=== PATIENT | male | born 1930 | race Caucasian/White ===

== ENCOUNTER → 2017-03-22 | Outpatient (CLI) | payer BC ==
[~2017-03-22] MED LIST: AMLO5TAB2 PO; ASPI325T45 PO; ENAL20TA PO; EZET10TA47 PO; HYDR200T5 PO; ISOS30TA3 PO; LPT/40 PO; METF500T PO; MULTTAB58 PO; NITRSPR6 SL; TOPI25TA55 PO; VITA1TAB4 PO; VITACAP26 PO
[2017-03-22 10:19] LABS: BASO % 0.2 %; BASO ABS # 0.01 K/uL (0-0.2); COMPLETE YES; EOS % 5.3 %; HEMATOCRIT 38.2 % (42-52); IG% 0.2 %; LYMPH % 37.2 %; LYMPH ABS # 1.96 K/uL (1.2-3.4); MEAN CELL VOLUME 84.5 fL (80-100); MEAN CORPUSCULAR HGB CONC 31.9 g/dl (32-36); MEAN PLATELET VOLUME 10.8 fL (7.4-10.4); MONO % 11.6 %; NEUT % 45.5 %; PLATELET COUNT 200 K/uL (130-400); RED BLOOD COUNT 4.52 M/uL (4.7-6.1); WHITE BLOOD COUNT 5.27 K/uL (4.8-10.8)
[2017-03-22 10:23] LABS: ESTIMATED AVERAGE GLUCOSE 151 mg/dl; HA1C FLAG Normal (Normal)
[2017-03-22 10:27] LABS: ALT/SGPT 24 U/L (12-78); BLOOD UREA NITROGEN 28 mg/dl (7-18); BUN/CREATININE RATIO 22.9 (10-20); CARBON DIOXIDE 23 mmol/L (21-32); CHLORIDE 113 mmol/L (98-107); CHOLESTEROL 132 mg/dl (0-200); GLUCOSE 111 mg/dl (70-99); POTASSIUM 4.2 mmol/L (3.5-5.1); SODIUM 144 mmol/L (136-145)
[2017-03-22 10:31] LABS: CALCIUM 9.1 mg/dl (8.5-10.1)
[2017-03-22 10:38] LABS: ALKALINE PHOSPHATASE 77 U/L (45-117); AST/SGOT 20 U/L (15-37); CHOLESTEROL/HDL RATIO 2.7; HDL CHOLESTEROL 49 mg/dl; LDL CHOLESTEROL CALCULATED 56 mg/dl; TRIGLYCERIDES 133 mg/dl (0-150); VERY LOW DENSITY LIPOPROT CALC 27 mg/dl
== END | disposition home or self-care (01) ==
LOC: C.LAB1850 09:05
PROVIDERS: ATTEND Nurse Practitioner Family
DX: E78.5 Hyperlipidemia, unspecified (principal); E11.49 Type 2 diabetes mellitus with other diabetic neurological complication; E03.9 Hypothyroidism, unspecified

== ENCOUNTER 2017-08-29 02:34 | Emergency (ER) | payer BC ==
[~2017-08-29] VITALS: Ht 165.1 cm; Wt 77.8 kg
[2017-08-29 02:37] VITALS: TEMP 36.5; Ht 165.1 cm; Wt 77.8 kg
--- NOTE | 2017-08-29 03:57 | EMERGENCY ROOM VISIT NOTE ---
ED Visit Note First contact with patient: 02:41 I saw this patient in conjunction with Ashley Wilkinson PA-C. I agree with her decision making and treatment plan.
--- NOTE | 2017-08-29 04:01 | EMERGENCY ROOM VISIT NOTE ---
History First contact with patient: 02:41 Chief Complaint: LACERATION/CUT (NON-SUTURE) Stated Complaint: FALL, LEFT ARM SKIN TEAR Nursing Triage Summary: pt was dreaming and fell out of bed, skin tears on bilat elbows History of Present Illness The patient is a 87 year old male who presents to the Emergency Room with complaints of falling out of bed from a nightmare. Patient states he landed on his elbows. He did not hit his head. He takes a baby aspirin. No other blood thinners. Patient complains of skin tears to bilateral elbows and some minimal left elbow pain. No prior fractures. Patient denies head injury, chest pain, dyspnea, back pain, neck pain, facial pain, dominant pain or any other medical complaints. Tetanus is current. Review of Systems See HPI for pertinent positives & negatives. A total of 10 systems reviewed and were otherwise negative. Past Medical/Surgical History Medical Problems: (1) Coronary artery bypass grafts x 4 Social History Smoking Status: Never Smoker Marital Status: Occupation Status: retired Current/Historical Medications Scheduled Amlodipine Besylate (Norvasc), 5 MG PO DAILY Aspirin (Aspirin), 325 MG PO DAILY Atorvastatin (Lipitor), 40 MG PO DAILY Enalapril Maleate (Enalapril Maleate), 20 MG PO DAILY Ezetimibe (Zetia), 10 MG PO DAILY Hydroxychloroquine Sulfate (Plaquenil), 200 MG PO DAILY Isosorbide Mononitrate Ext Rel (Imdur Ext Rel), 30 MG PO DAILY Metformin Hcl (Glucophage), 500 MG PO BID Multiple Vitamin (Multivitamin), 1 TAB PO DAILY Topiramate (Topamax), 25 MG PO DAILY Vitamin E (Vitamin E), 1 TAB PO DAILY Vitamins C & E (Vitamin C), 1 CAP PO DAILY Scheduled PRN Nitroglycerin (Nitrolingual 60 [place]), 1 SPRAY SL Physical Exam Vital Signs Date Time Temp Pulse Resp B/P (MAP) Pulse Ox O2 Delivery O2 Flow Rate FiO2 08/29/17 02:37 36.5 74 18 132/74 96 Room Air Physical Exam VITALS: Vitals are noted on the nurse's note and reviewed by myself. Vital signs stable. GENERAL: Pleasant male, in no acute distress, nondiaphoretic, well-developed well-nourished. SKIN: Skin tears to bilateral elbows with multiple healing bruises to upper lower extremities The rest of the skin was without rashes, erythema, edema, or bruising. There is no tenting of the skin. Capillary reflex less than 2 seconds. HEAD: Normocephalic atraumatic. EARS: External auditory canals clear, tympanic membranes pearly lugo without erythema or effusion bilaterally. EYES: Pupils equal round and reactive to light and accommodation. Conjunctivae without injection, sclerae without icterus. Extraocular movements intact. NOSE: Patent, turbinates without inflammation or discharge. MOUTH: Mucous membranes moist. Pharynx without erythema or exudate. Uvula midline. Airway patent. Tongue does not deviate. NECK: Supple without nuchal rigidity. No lymphadenopathy. No thyromegaly. Cervical spine is nontender. No JVD. HEART: Regular rate and rhythm LUNGS: Clear to auscultation bilaterally without wheezes, rales or rhonchi. No dullness to percussion. No retractions or accessory muscle use. ABDOMEN: Positive bowel sounds x 4. Normal tympanic percussion. Soft, nontender, without masses or organomegaly. Núñez sign negative. No guarding or rebound tenderness. MUSCULOSKELETAL: No muscle atrophy, erythema, or edema noted. NEURO: Patient was alert and oriented to person place and time. Normal sensation to light and sharp touch. No focal neurological deficits. Medical Decision & Procedures ED Course Prior records reviewed and summarized as above. Triage Nursing notes reviewed. Additional history obtained from family The patient's history was concerning for skin tears and left elbow pain Differential diagnosis: Etiologies such as sprain, strain, fracture, dislocation, abrasion, laceration, skin tear, as well as others were entertained.. Physical examination: As above ER treatment provided: Patient declined pain meds Location: Right and left elbows Total length: 1 cm, 8 cm Complexity: Simple Verbal consent was obtained after the risks and benefits were explained, including but not limited to bleeding, scarring, infection, pain, and bone/joint /nerve damage. At this time, the risks of the procedure are less than the risks of NOT performing the procedure. A time out was taken and the correct patient and site identified. The skin was cleansed with normal saline. The wounds were explored for foreign bodies and none found. Examination revealed no injury to deep structures such as tendons, bone, or significant blood vessels. Debridement was not performed. The wounds were approximated using Steri-Strips and Dermabond was placed on top. Hemostasis and excellent approximation was achieved. Detailed wound care instructions and signs and symptoms of infection reviewed with the pt. No complications and the patient tolerated the procedure well. On reassessment the patient felt better. Diagnostics interpreted by me: Imaging studies: Elbow x-ray with no overt fracture or dislocation, soft tissue swelling per my interpretation This appears to be fall with skin tears and elbow injury. These were repaired as above. Patient was placed in a sling and neurovascular status was checked after placement and is intact. He was advised if the pain persist to follow-up with family care for repeat imaging. Patient was counseled on skin tears and on wound care. Patient was neurovascularly and neurologically intact. He is well-appearing. No other signs of injury. He was ambulating without difficulties. He had no loss of consciousness. No head injury. No other concerns per patient. He was advised to follow-up with family care in a few days or here in the ER sooner for headache, fevers, confusion, signs of infection, worsening signs or symptoms or as needed. By the evaluation outlined above emergent etiologies such as fracture, dislocation, as well as others were deemed relatively unlikely. The pt informed about the findings as listed above. All questions were answered and pleased with the treatment. Return instructions were outlined and the patient was discharged in stable condition. Referral: The patient was referred back to primary care physician for follow-up in 2 to 3 days for a recheck of the current condition. Case reviewed with my attending Medical Decision As above Medication Reconcilliation Current Medication List: was personally reviewed by me Blood Pressure Screening Patient's blood pressure: Normal blood pressure Impression Primary Impression: Fall Additional Impressions: Skin tear of elbow without complication Skin tear of left elbow without complication Injury of left elbow Departure Information Dispostion Home / Self-Care Condition GOOD Referrals Jose Ramon Ken III, CRNP (PCP) Patient Instructions My [facility] Additional Instructions Steri-Strips will fall off on their own in a few days. After they fall off, apply Antibiotic ointment and bandage to the areas until healed. Follow up with family doctor or return for any signs of infection (increasing redness, swelling, drainage, or fever). Keep covered when in sun until fully healed then SPF 50 or higher until scar healed. Acetaminophen(Tylenol) may be used for fever or pain. Use 1000mg every six hours as needed. Avoid using more than 3000mg in a 24 hour period. This medication can be taken if you need to drive, work, or perform activities which may be dangerous when taking narcotic pain medication. Ice compresses for 20 minutes at a time four times daily for 2-3 days. Use the sling as instructed. Remove your arm from the sling 4-6 times a day and move all the joints around to keep them loose. Follow-up this week as scheduled with family care. If your elbow pain persists then have this reevaluated. Return to ER sooner for headache, fevers, chest pain, difficulty breathing, abdominal pain, redness, confusion, worsening signs or symptoms or as needed. Problem Qualifiers Primary Impression: Fall Encounter type: initial encounter Qualified Codes: W19.XXXA - Unspecified fall, initial encounter Additional Impressions: Skin tear of elbow without complication Encounter type: initial encounter Laterality: right Qualified Codes: S51.011A - Laceration without foreign body of right elbow, initial encounter Skin tear of left elbow without complication Encounter type: initial encounter Qualified Codes: S51.012A - Laceration without foreign body of left elbow, initial encounter
[2017-08-29 04:25] VITALS: BP 144/77; PULSE 69; O2SAT 98
--- NOTE | 2017-08-29 06:39 | DIAGNOSTIC IMAGING REPORT ---
L ELBOW MIN 3 VIEWS ROUTINE CLINICAL HISTORY: Left elbow pain status post trauma COMPARISON: None. DISCUSSION: There is pronounced posterior soft tissue swelling. 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 No acute fractures are visualized. No dislocations are evident IMPRESSION: 1. No acute fractures identified 2. Degenerative changes and pronounced soft tissue swelling Electronically signed by: Giovanni Souza M.D. 08/29/2017 6:38 AM Dictated Date/Time: 08/29/2017 6:37 AM
== END 2017-08-29 04:27 | disposition home or self-care (01) ==
LOC: C.EDB 02:35 → C.EDA 04:27
DX: S51.011A Laceration without foreign body of right elbow, initial encounter (principal); S51.012A Laceration without foreign body of left elbow, initial encounter; W06.XXXA Fall from bed, initial encounter; Z95.1 Presence of aortocoronary bypass graft; Z79.82 Long term (current) use of aspirin; Z79.84 Long term (current) use of oral hypoglycemic drugs

== ENCOUNTER → 2017-09-09 | Outpatient (CLI) | payer BC ==
[2017-09-09 09:34] LABS: BASO % 0.2 %; BASO ABS # 0.01 K/uL (0-0.2); COMPLETE YES; EOS % 4.9 %; HEMATOCRIT 37.9 % (42-52); IG% 0.2 %; LYMPH % 43.5 %; MEAN CELL VOLUME 87.7 fL (80-100); MEAN CORPUSCULAR HEMOGLOBIN 27.1 pg (25-34); MEAN CORPUSCULAR HGB CONC 30.9 g/dl (32-36); MEAN PLATELET VOLUME 10.4 fL (7.4-10.4); MONO % 13.4 %; NEUT % 37.8 %; PLATELET COUNT 239 K/uL (130-400); RED BLOOD COUNT 4.32 M/uL (4.7-6.1); WHITE BLOOD COUNT 5.52 K/uL (4.8-10.8)
[2017-09-09 09:47] LABS: ALT/SGPT 25 U/L (12-78); AST/SGOT 18 U/L (15-37); BLOOD UREA NITROGEN 25 mg/dl (7-18); BUN/CREATININE RATIO 19.4 (10-20); CALCIUM 9.2 mg/dl (8.5-10.1); CARBON DIOXIDE 26 mmol/L (21-32); CHLORIDE 114 mmol/L (98-107); GLUCOSE 119 mg/dl (70-99); POTASSIUM 4.7 mmol/L (3.5-5.1); SODIUM 144 mmol/L (136-145)
[2017-09-09 09:50] LABS: ESTIMATED AVERAGE GLUCOSE 146 mg/dl; HA1C FLAG Normal (Normal)
[2017-09-09 09:59] LABS: ALB/GLOB RATIO 1.1 (0.9-2); ALKALINE PHOSPHATASE 81 U/L (45-117)
== END | disposition home or self-care (01) ==
LOC: C.LAB1850 08:10
PROVIDERS: ATTEND Nurse Practitioner Family
DX: E78.5 Hyperlipidemia, unspecified (principal); E11.49 Type 2 diabetes mellitus with other diabetic neurological complication; E11.42 Type 2 diabetes mellitus with diabetic polyneuropathy; D64.9 Anemia, unspecified; N28.9 Disorder of kidney and ureter, unspecified; E03.9 Hypothyroidism, unspecified

== ENCOUNTER → 2017-11-18 | Outpatient (CLI) | payer BC ==
[~2017-11-18] MED LIST changes: +CEFD300C3 PO; +LEVO50TA6 PO
== END | disposition home or self-care (01) ==
LOC: C.LAB1850 09:57
PROVIDERS: ATTEND Nurse Practitioner Family
DX: D64.9 Anemia, unspecified (principal); E03.9 Hypothyroidism, unspecified

== ENCOUNTER 2017-11-20 12:19 | Observation (INO) | payer BC ==
[~2017-11-20] VITALS: Ht 157.5 cm; Wt 77.6 kg
[~2017-11-20 12:19] MED LIST changes: -CEFD300C3 PO; -LEVO50TA6 PO
[2017-11-20] MEDS ORDERED: ACETAMINOPHEN 500 MG TAB PO STA (12:52)
[2017-11-20] MEDS ORDERED: SODIUM CHLORIDE 0.9% 500ML 500 ML IV STA ×2 (12:52→14:04)
--- NOTE | 2017-11-20 13:11 | EMERGENCY ROOM VISIT NOTE ---
History Report prepared by Scribe: Debo Monroe Under the Supervision of: Dr. Castillo Agosto M.D. First contact with patient: 12:45 Chief Complaint: ALTERED MENTAL STATUS Stated Complaint: JUST NOT HIMSELF Nursing Triage Summary: Per pts "he doesnt seem to be himself". On Tuesday night pts noticed his driving was "off", and pt verbalized at that time "I don't know where I am at". This morning Pts had to tell him to get dressed, "pt was just staring off". Per pt: "I feel yucky, I just don't feel well". Pt very weak, two assist in triage, pts verbalizes this is not normal for him. Alert and oriented to person and place only. Pt febrile in triage, 38.5. Has moist non productive cough, tachyepnic, resps 28. History of Present Illness The patient is an 87 year old male who presents to the Emergency Room with complaints of a possible altered mental status for the past few days. He is accompanied by his . His reports "he just doesn't seem like himself". 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 She also had to prompt him to get dressed this morning, which is unusual. The patient is febrile on exam and states he "just feels yucky". He admits to feeling weak and fatigued. He has been coughing but denies any shortness of breath or chest pain. He did receive a flu shot this year. He denies any recent diarrhea or urinary symptoms. 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 A total of 10 systems reviewed and were otherwise negative. Past Medical & Surgical Medical Problems: (1) JOVANNA (acute kidney injury) (2) Coronary artery bypass grafts x 4 (3) Dehydration (4) NSTEMI (non-ST elevated myocardial infarction) Social History Smoking Status: Never Smoker Alcohol Use: none Drug Use: none Marital Status: Housing Status: lives with significant other Occupation Status: retired Current/Historical Medications Scheduled Amlodipine Besylate (Norvasc), 5 MG PO DAILY Aspirin (Aspirin), 325 MG PO DAILY Atorvastatin (Lipitor), 40 MG PO DAILY Enalapril Maleate (Enalapril Maleate), 20 MG PO BID Ezetimibe (Zetia), 10 MG PO DAILY Hydroxychloroquine Sulfate (Plaquenil), 200 MG PO DAILY Isosorbide Mononitrate Ext Rel (Imdur Ext Rel), 30 MG PO DAILY Levothyroxine Sodium (Levothyroxine Sodium), 50 MCG PO DAILY Metformin Hcl (Glucophage), 500 MG PO BID Multiple Vitamin (Multivitamin), 1 TAB PO DAILY Topiramate (Topamax), 25 MG PO BID Vitamin E (Vitamin E), 1 TAB PO DAILY Vitamins C & E (Vitamin C), 1 CAP PO DAILY Allergies Coded Allergies: No Known Allergies (Unverified , 07/18/15) Physical Exam Vital Signs Date Time Temp Pulse Resp B/P (MAP) Pulse Ox O2 Delivery O2 Flow Rate FiO2 11/20/17 17:00 82 20 142/59 94 Room Air 11/20/17 16:08 76 20 112/40 92 Room Air 11/20/17 14:22 37.2 69 24 102/46 93 Room Air 11/20/17 13:39 74 16 108/41 93 Room Air 11/20/17 12:50 92 Room Air 11/20/17 12:48 75 11/20/17 12:32 38.5 78 28 115/68 90 Room Air Physical Exam GENERAL: Patient is elderly appearing and in minimal distress. HEENT: No acute trauma, normocephalic atraumatic, mucous membranes dry, no nasal congestion, no scleral icterus. NECK: No stridor, no adenopathy, no meningismus, trachea is midline. LUNGS: No dyspnea. Clear to auscultation and equal bilaterally. No wheeze, no rhonchi. HEART: Regular rate and rhythm. No murmurs, rubs, gallops appreciated. CHEST: Pacemaker in upper chest. ABDOMEN: Soft, nontender, bowel sounds positive, no masses appreciated, no peritonitis. BACK: No midline tenderness, no CVA tenderness EXTREMITIES: Trace edema in bilateral ankles. Normal motion all extremities, no cyanosis. NEUROLOGIC: Alert and oriented, no acute motor or sensory deficits, no focal weakness, cranial nerves grossly intact. SKIN: No rash, no jaundice, no diaphoresis. Medical Decision & Procedures ER Provider Diagnostic Interpretation: Radiology results and stated below per my review and radiologist interpretation: CHEST ONE VIEW PORTABLE HISTORY: 87 years-old Male fever acute fever COMPARISON: Chest radiographs 02/17/2013 TECHNIQUE: Portable AP view of the chest FINDINGS: Cardiac silhouette is within normal limits. Prior median sternotomy. Left pectoral pacer is unchanged. No pneumothorax, pleural effusion, focal airspace consolidation or overt pulmonary edema. Degenerative changes are seen within the shoulders and spine. IMPRESSION: No acute process. The above report was generated using voice recognition software. It may contain grammatical, syntax or spelling errors. Electronically signed by: Miguel Marie M.D. 11/20/2017 1:12 PM Laboratory Results 11/20/17 12:59 Red Blood Count 4.36, Mean Corpuscular Volume 85.1, Mean Corpuscular Hemoglobin 27.8, Mean Corpuscular Hemoglobin Concent 32.6, Mean Platelet Volume 10.8, Neutrophils (%) (Auto) 82.8, Lymphocytes (%) (Auto) 10.3, Monocytes (%) (Auto) 6.7, Eosinophils (%) (Auto) 0.0, Basophils (%) (Auto) 0.1, Neutrophils # (Auto) 6.04, Lymphocytes # (Auto) 0.75, Monocytes # (Auto) 0.49, Eosinophils # (Auto) 0.00, Basophils # (Auto) 0.01 11/20/17 12:59 Test 11/20/17 12:45 11/20/17 12:59 11/20/17 13:08 11/20/17 16:00 Influenza Type A Antigen Neg for Influ A (NEG) Influenza Type B Antigen Neg for Influ B (NEG) White Blood Count 7.30 K/uL (4.8-10.8) Red Blood Count 4.36 M/uL (4.7-6.1) Hemoglobin 12.1 g/dL (14.0-18.0) Hematocrit 37.1 % (42-52) Mean Corpuscular Volume 85.1 fL (80-100) Mean Corpuscular Hemoglobin 27.8 pg (25-34) Mean Corpuscular Hemoglobin Concent 32.6 g/dl (32-36) Platelet Count 169 K/uL (130-400) Mean Platelet Volume 10.8 fL (7.4-10.4) Neutrophils (%) (Auto) 82.8 % Lymphocytes (%) (Auto) 10.3 % Monocytes (%) (Auto) 6.7 % Eosinophils (%) (Auto) 0.0 % Basophils (%) (Auto) 0.1 % Neutrophils # (Auto) 6.04 K/uL (1.4-6.5) Lymphocytes # (Auto) 0.75 K/uL (1.2-3.4) Monocytes # (Auto) 0.49 K/uL (0.11-0.59) Eosinophils # (Auto) 0.00 K/uL (0-0.5) Basophils # (Auto) 0.01 K/uL (0-0.2) RDW Standard Deviation 44.4 fL (36.4-46.3) RDW Coefficient of Variation 14.2 % (11.5-14.5) Immature Granulocyte % (Auto) 0.1 % Immature Granulocyte # (Auto) 0.01 K/uL (0.00-0.02) Ovalocytes 1+ Anion Gap 11.0 mmol/L (3-11) Est Creatinine Clear Calc Drug Dose 28.1 ml/min Estimated GFR () 42.0 Estimated GFR (Non- 36.2 BUN/Creatinine Ratio 17.8 (10-20) Calcium Level 8.6 mg/dl (8.5-10.1) Total Bilirubin 0.3 mg/dl (0.2-1) Direct Bilirubin 0.1 mg/dl (0-0.2) Aspartate Amino Transf (AST/SGOT) 36 U/L (15-37) Alanine Aminotransferase (ALT/SGPT) 29 U/L (12-78) Alkaline Phosphatase 71 U/L (45-117) Troponin I 0.186 ng/ml (0-0.045) Total Protein 7.1 gm/dl (6.4-8.2) Albumin 3.4 gm/dl (3.4-5.0) Bedside Lactic Acid Venous 2.43 mmol/L (0.90-1.70) Urine Color DK YELLOW Urine Appearance CLEAR (CLEAR) Urine pH 5.0 (4.5-7.5) Urine Specific [place] 1.029 (1.000-1.030) Urine Protein TRACE (NEG) Urine Glucose (UA) NEG (NEG) Urine Ketones TRACE (NEG) Urine Occult Blood NEG (NEG) Urine Nitrite NEG (NEG) Urine Bilirubin NEG (NEG) Urine Urobilinogen NEG (NEG) Urine Leukocyte Esterase NEG (NEG) Urine WBC (Auto) 1-5 /hpf (0-5) Urine RBC (Auto) 0-4 /hpf (0-4) Urine Hyaline Casts (Auto) 5-10 /lpf (0-5) Urine Epithelial Cells (Auto) 20-30 /lpf (0-5) Urine Bacteria (Auto) NEG (NEG) Laboratory results as reviewed by me. Medications Administered Medications (Trade) Dose Ordered Sig/Vandana Route Start Time Stop Time Status Last Admin Dose Admin Acetaminophen (Tylenol Tab) 1,000 mg NOW STAT PO 11/20/17 12:52 11/20/17 12:55 DC 11/20/17 13:05 1,000 MG Sodium Chloride 500 ml @ 999 mls/hr Q31M STAT IV 11/20/17 12:52 11/20/17 13:22 DC 11/20/17 13:05 999 MLS/HR Cefepime HCl 1000 mg/Dextrose 111 ml @ 200 mls/hr NOW STAT IV 11/20/17 13:50 11/20/17 14:23 DC 11/20/17 14:17 200 MLS/HR Vancomycin HCl 1500 mg/Sodium Chloride 530 ml @ 200 mls/hr ONE STAT IV 11/20/17 13:50 11/20/17 16:28 DC 11/20/17 14:17 200 MLS/HR Sodium Chloride 500 ml @ 999 mls/hr Q31M STAT IV 11/20/17 14:04 11/20/17 14:34 DC 11/20/17 14:17 999 MLS/HR Sodium Chloride 1,000 ml @ 100 mls/hr Q10H STAT IV 11/20/17 17:08 11/21/17 03:07 11/20/17 17:08 100 MLS/HR ECG Indication: other (AMS) Rate (beats per minute): 72 Rhythm: other (atrial sensed, ventricular paced) Findings: LBBB, no acute ischemic change, other (Periodic natural P-waves) Change: EKG was interpreted by me. ED Course 1249: The patient was evaluated in room A12. A complete history and physical exam was performed. 1252: NSS 500 ml @ 999 mls/hr IV, Tylenol 1000 mg PO. 1350: Vancomycin HCl 1500 mg/NSS 530 ml @ 200 mls/hr IV, Cefepime HCl 1000 mg/ Dextrose 111 ml @ 200 mls/hr IV. 1402: I reevaluated the patient. He is feeling a little better. His O2 sats are 90% on room air. He has no shortness of breath. 1404: NSS 500 ml @ 999 mls/hr IV. 1416: I discussed the patients case with Dr. Le [facility] Hospitalist. The patient will be further evaluated. Medical Decision Differential: Viral, Pharyngitis, Cellulitis, Pneumonia, Influenza, Meningitis, Sepsis, Bacteremia, UTI/Pyelonephritis, Endocrine, Toxicologic, amongst other pathologies entertained. 87 yr old male arrives for evaluation of fevers, gen weakness, and shortness of breath. He has URI symptoms and is dehydrated by examination. Given empiric IV fluids while awaiting labs. CXR unremarkable. UA clear. Labs with elevated LA consistent with dehydration vs sepsis. With fever, tachy, LA will treat empirically with IV abx as well as further fluid resus. Unclear etiology but no evidence of meningitis at this time and he is happy and smiling. Does seem flu like though testing negative thus will defer tamiflu decision to hospitalist. Cr bumped which I suspect is dehydration which is likely cause of Trop elevation as he has no symptoms of acs. Will hold on any anticoagulation given this. Medication Reconcilliation Current Medication List: was personally reviewed by me Blood Pressure Screening Patient's blood pressure: Low blood pressure Consults Time Called: 141 Consulting Physician: Dr. Le [facility] Hospitalist Returned Call: [phone] I discussed the patients case with Dr. Le [facility] Hospitalist. The patient will be further evaluated. Impression Primary Impression: Sepsis Additional Impressions: Dehydration Renal insufficiency Elevated troponin Scribe Attestation The scribe's documentation has been prepared under my direction and personally reviewed by me in its entirety. I confirm that the note above accurately reflects all work, treatment, procedures, and medical decision making performed by me. Departure Information Referrals Jose Ramon Ken III, CRNP (PCP) Patient Instructions My [facility] Problem Qualifiers
[2017-11-20 13:27] LABS: HEMATOCRIT 37.1 % (42-52); HEMOGLOBIN 12.1 g/dL (14.0-18.0); MEAN CELL VOLUME 85.1 fL (80-100); MEAN CORPUSCULAR HEMOGLOBIN 27.8 pg (25-34); MEAN CORPUSCULAR HGB CONC 32.6 g/dl (32-36); MEAN PLATELET VOLUME 10.8 fL (7.4-10.4); PLATELET COUNT 169 K/uL (130-400); RED CELL DISTRIBUTION WIDTH CV 14.2 % (11.5-14.5); RED CELL DISTRIBUTION WIDTH SD 44.4 fL (36.4-46.3)
[2017-11-20 13:37] LABS: ALBUMIN 3.4 gm/dl (3.4-5.0); CALCIUM 8.6 mg/dl (8.5-10.1); CREATININE 1.68 mg/dl (0.60-1.40); POTASSIUM 4.1 mmol/L (3.5-5.1)
[2017-11-20 13:39] LABS: INFLUENZA B ANTIGEN Neg for Influ B (NEG)
[2017-11-20 13:46] LABS: BASO % 0.1 %; BASO ABS # 0.01 K/uL (0-0.2); IG# 0.01 K/uL (0.00-0.02); LYMPH % 10.3 %; LYMPH ABS # 0.75 K/uL (1.2-3.4); MONO % 6.7 %; MONO ABS # 0.49 K/uL (0.11-0.59); NEUT % 82.8 %; NEUT ABS # 6.04 K/uL (1.4-6.5)
[2017-11-20 13:50] LABS: TOTAL PROTEIN 7.1 gm/dl (6.4-8.2)
[2017-11-20] MEDS ORDERED: CEFEPIME IV 1,000 MG in DEXTROSE 5% 100ML 100 ML IV STA (13:50)
[2017-11-20] MEDS ORDERED: VANCOMYCIN INJ 1,500 MG in SODIUM CHLORIDE 0.9% 500ML 500 ML IV STA (13:50)
[2017-11-20] MEDS ORDERED: VANCOMYCIN CONSULT ACTIVE PRN (14:00)
[2017-11-20] MEDS ORDERED: LEVO50TA6 PO (14:07)
--- NOTE | 2017-11-20 16:04 | History and Physical ---
History & Physical Date & Time of Service: Nov 20, 2017 at 15:31 Chief Complaint: Just Not Himself Primary Care Physician: Jose Ramon Ken III, CRNP History of Present Illness Source: patient, family 87 yo male comes into the hospital with a one week history of a unquantifable productive cough. This was later accompanied by subjective fever and chills, and poor appetite. Patient reports that the past 2 days patient has become more lethargic and forgetful. As well as becoming generalized weak. Patient's states that he would have episodes where he would stare off into space. Or not get dressed in the morning. He is normally very active and reads the newspaper, something that he has not done the past 2 days. Patient also has been getting lost when he is with his , stating that he did not know where he was when they were driving home. Patient denies dysuria, nausea, vomiting, chest pain, abd. pain. Past Medical/Surgical History Medical Problems: (1) Coronary artery bypass grafts x 4 Status: Resolved Family History Mother Family history of Cancer Denied: Family history of Colon cancer Denied: Family history of malignant neoplasm of breast Denied: Family history of malignant neoplasm of prostate Denied: Family history of myocardial infarction Denied: Family history of Ovarian cancer Father Denied: Family history of Colon cancer Denied: Family history of malignant neoplasm of breast Denied: Family history of malignant neoplasm of prostate Denied: Family history of myocardial infarction Denied: Family history of Ovarian cancer Sibling Denied: Family history of Colon cancer Denied: Family history of malignant neoplasm of breast Denied: Family history of malignant neoplasm of prostate Denied: Family history of myocardial infarction Denied: Family history of Ovarian cancer Family History Denied: Family history of Colon cancer Denied: Family history of malignant neoplasm of breast Denied: Family history of malignant neoplasm of prostate Denied: Family history of myocardial infarction Denied: Family history of Ovarian cancer Social History Smoking Status: Never Smoker Drug Use: none Marital Status: Occupational Status: 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, 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[employer]) Immunizations History of Influenza Vaccine: Yes History of Tetanus Vaccine?: No History of Pneumococcal: Yes History of Hepatitis B Vaccine: Unknown Multi-Drug Resistant Organisms History of MDRO: No Allergies Coded Allergies: No Known Allergies (Unverified , 07/18/15) Home Medications Scheduled Amlodipine Besylate (Norvasc), 5 MG PO DAILY Aspirin (Aspirin), 325 MG PO DAILY Atorvastatin (Lipitor), 40 MG PO DAILY Enalapril Maleate (Enalapril Maleate), 20 MG PO BID Ezetimibe (Zetia), 10 MG PO DAILY Hydroxychloroquine Sulfate (Plaquenil), 200 MG PO DAILY Isosorbide Mononitrate Ext Rel (Imdur Ext Rel), 30 MG PO DAILY Levothyroxine Sodium (Levothyroxine Sodium), 50 MCG PO DAILY Metformin Hcl (Glucophage), 500 MG PO BID Multiple Vitamin (Multivitamin), 1 TAB PO DAILY Topiramate (Topamax), 25 MG PO BID Vitamin E (Vitamin E), 1 TAB PO DAILY Vitamins C & E (Vitamin C), 1 CAP PO DAILY Review of Systems Constitutional: + fever, + chills, No sweats Eyes: No worsening of vision ENT: + hearing loss Respiratory: + cough, No sputum, No wheezing, No shortness of breath, No dyspnea on exertion Cardiovascular: No chest pain, No orthopnea Abdomen: No pain, No nausea Neurologic: + memory loss, + weakness, No paralysis, No vertigo Psychiatric: No depression symptoms, No anhedonism Endocrine: + fatigue, + excessive thirst, No excessive urination Hematologic / Lymphatic: No abnormal bleeding/bruising, No clotting problems Integumentary: No rash Allergic / Immunologic: No environmental allergies Physical Exam Vital Signs Date Time Temp Pulse Resp B/P (MAP) Pulse Ox O2 Delivery O2 Flow Rate FiO2 11/20/17 14:22 37.2 69 24 102/46 93 Room Air 11/20/17 13:39 74 16 108/41 93 Room Air 11/20/17 12:50 92 Room Air 11/20/17 12:48 75 11/20/17 12:32 38.5 78 28 115/68 90 Room Air General Appearance: WD/WN, no apparent distress Head: normocephalic Eyes: PERRL ENT: normal ENT inspection, + pertinent finding (dry mm) Neck: supple, no adenopathy Respiratory/Chest: chest non-tender, lungs clear, normal breath sounds, + pertinent finding Cardiovascular: regular rate, rhythm, no edema, normal peripheral pulses Abdomen/GI: normal bowel sounds, non tender, soft Back: normal inspection Extremities/Musculoskelatal: normal inspection, no calf tenderness, no pedal edema Neurologic/Psych: alert, oriented x 3 Skin: normal color Lymphatic: no adenopathy Diagnostics Laboratory Results Results Past 24 Hours Test 11/20/17 12:45 11/20/17 12:59 11/20/17 13:08 Range/Units Influenza Type A Antigen Neg for Influ A NEG Influenza Type B Antigen Neg for Influ B NEG White Blood Count 7.30 4.8-10.8 K/uL Red Blood Count 4.36 4.7-6.1 M/uL Hemoglobin 12.1 14.0-18.0 g/dL Hematocrit 37.1 42-52 % Mean Corpuscular Volume 85.1 80-100 fL Mean Corpuscular Hemoglobin 27.8 25-34 pg Mean Corpuscular Hemoglobin Concent 32.6 32-36 g/dl Platelet Count 169 130-400 K/uL Mean Platelet Volume 10.8 7.4-10.4 fL Neutrophils (%) (Auto) 82.8 % Lymphocytes (%) (Auto) 10.3 % Monocytes (%) (Auto) 6.7 % Eosinophils (%) (Auto) 0.0 % Basophils (%) (Auto) 0.1 % Neutrophils # (Auto) 6.04 1.4-6.5 K/uL Lymphocytes # (Auto) 0.75 1.2-3.4 K/uL Monocytes # (Auto) 0.49 0.11-0.59 K/uL Eosinophils # (Auto) 0.00 0-0.5 K/uL Basophils # (Auto) 0.01 0-0.2 K/uL RDW Standard Deviation 44.4 36.4-46.3 fL RDW Coefficient of Variation 14.2 11.5-14.5 % Immature Granulocyte % (Auto) 0.1 % Immature Granulocyte # (Auto) 0.01 0.00-0.02 K/uL Ovalocytes 1+ Sodium Level 134 136-145 mmol/L Potassium Level 4.1 3.5-5.1 mmol/L Chloride Level 103 98-107 mmol/L Carbon Dioxide Level 20 21-32 mmol/L Anion Gap 11.0 3-11 mmol/L Blood Urea Nitrogen 30 7-18 mg/dl Creatinine 1.68 0.60-1.40 mg/dl Est Creatinine Clear Calc Drug Dose 28.1 ml/min Estimated GFR () 42.0 Estimated GFR (Non- 36.2 BUN/Creatinine Ratio 17.8 10-20 Random Glucose 276 70-99 mg/dl Calcium Level 8.6 8.5-10.1 mg/dl Total Bilirubin 0.3 0.2-1 mg/dl Direct Bilirubin 0.1 0-0.2 mg/dl Aspartate Amino Transf (AST/SGOT) 36 15-37 U/L Alanine Aminotransferase (ALT/SGPT) 29 12-78 U/L Alkaline Phosphatase 71 45-117 U/L Troponin I 0.190 0-0.045 ng/ml Total Protein 7.1 6.4-8.2 gm/dl Albumin 3.4 3.4-5.0 gm/dl Bedside Lactic Acid Venous 2.43 0.90-1.70 mmol/L Microbiology Results 11/20/17 Blood Culture, Received Pending 11/20/17 Blood Culture, Received Pending Diagnostic Radiology TECHNIQUE: Portable AP view of the chest FINDINGS: Cardiac silhouette is within normal limits. Prior median sternotomy. Left pectoral pacer is unchanged. No pneumothorax, pleural effusion, focal airspace consolidation or overt pulmonary edema. Degenerative changes are seen within the shoulders and spine. IMPRESSION: No acute process. EKG Atrial-sensed ventricular-paced rhythm with occasional AV dual-paced complexes Abnormal ECG When compared with ECG of 17-FEB-2013 07:35, Vent. rate has increased BY 2 BPM Confirmed by CIERRA ARMSTRONG ([id number]) on 11/20/2017 9:57:06 PM Impression Assessment and Plan Demand ischemia and Acute kidney injury in an 87 yo male with Upper respiratory infection with dehydration Demand ischemia will admit to telemetry will trend troponin x 3 First troponin was 0.190 will con IVF. Patient had very concentrated urine and small amount after a bolus was given. Patient has history of arteriosclerotic cardiovascular disease as noted in outpatient documents Its likelythat this secondaryy to the dehydration from the upper respiratory infection lead to his demand ischemia JOVANNA Nomrally at 1.3 creatinine Now it is at 1.6 Patient received 1.5 liters in ER. Will continue with gentle infusion. will repeat bmp in AM Upper respiratory infection Patient received vanco and cefepime. Will hold further antibiotics as his history sounds like a viral illness accompanied by dehydration. HTN will resume home meds DM2 placed on sliding scale H/O pacemaker H/O third AV block hypothyroidsim cont home meds. DVT: held/ expect short term stay Level of Care Telemetry Advanced Directives Existing Advance Directive: No Existing Living Will: No Existing Power of Channel Program Manager: No Existing Health Care Proxy: No Resuscitation Status FULL RESUSCITATION VTE Prophylaxis VTE Risk Assessment Done? Y/N: Yes Risk Level: Low Given or contraindicated: Treatment not indicated
[2017-11-20] MEDS ORDERED: SODIUM CHLORIDE 0.9% 1000ML 1,000 ML IV STA (17:08)
[2017-11-20] MEDS ORDERED: ACETAMINOPHEN 325 MG TAB PO PRN (17:15)
[2017-11-20] MEDS ORDERED: MAGNESIUM HYDROXIDE SUSP 30 ML UDC PO PRN (17:15)
[2017-11-20] MEDS ORDERED: GLUCOSE 10 TABS/TUBE PO PRN (17:15)
[2017-11-20] MEDS ORDERED: INFLUENZA VIRUS QUAD VACCINE 0.5 ML SYR IM. ONE (17:15)
[2017-11-20] MEDS ORDERED: GLUCOSE 40% GEL 15 GM TUBE PO PRN (17:15)
[2017-11-20] MEDS ORDERED: GLUCAGON FOR INJ 1 MG VIAL SQ PRN (17:15)
[2017-11-20] MEDS ORDERED: DEXTROSE 50% 50 ML SYR IV PRN (17:15)
[2017-11-20] MEDS ORDERED: NITROGLYCERIN 0.4 MG SL PER TAB CHARGE SL PRN (17:15)
[2017-11-20 18:30] VITALS: BP 145/73; PULSE 97; TEMP 37; O2SAT 96; Ht 157.5 cm; Wt 77.6 kg
[2017-11-20] MEDS ORDERED: INFLUENZA VACCINE HIGH DOSE 65+ 0.5 ML SYR IM. ONE (21:00)
[2017-11-20] MEDS: INSULIN ASPART 100 UNITS/ML 3 ML PEN SC SCH (21:00)
[2017-11-20] MEDS ORDERED: INFLUENZA ADMINISTRATION CHARGE ONE (21:00)
[2017-11-20] MEDS ORDERED: PNEUMOCOCCAL POLYSACCHARIDES 25 MCG/0.5 ML VIAL/SYR IM. ONE (21:00)
[2017-11-20] MEDS ORDERED: PNEUMOCOCCAL ADMINISTRATION CHARGE ONE (21:00)
[2017-11-20] MEDS ORDERED: LORAZEPAM 0.5 MG TAB ONE (21:10)
[2017-11-20] MEDS ORDERED: IV FLUIDS COMPLETED PRN (21:15)
[2017-11-20] MEDS: SODIUM CHLORIDE 0.9% 1000ML 1,000 ML IV SCH (21:36)
[2017-11-20] MEDS: TOPIRAMATE 25 MG TAB PO SCH (21:36)
[2017-11-20] MEDS: ENALAPRIL MALEATE 10 MG TAB PO SCH (21:37)
[2017-11-20 23:54] VITALS: BP 115/63; PULSE 82; TEMP 37.7; O2SAT 93
[2017-11-21] VITALS (7 sets, daily range): BP systolic 110–118; BP diastolic 63–67; PULSE 66–77; TEMP 36.9–37.9; O2SAT 90–95
[2017-11-21] MEDS: SODIUM CHLORIDE 0.9% 1000ML 1,000 ML IV SCH ×2 (04:36→12:33)
[2017-11-21] MEDS ORDERED: LEVOTHYROXINE 50 MCG TAB PO SCH (06:00)
[2017-11-21] MEDS: INSULIN ASPART 100 UNITS/ML 3 ML PEN SC SCH ×2 (07:00→11:00)
[2017-11-21] MEDS ORDERED: LORAZEPAM 0.5 MG TAB PO PRN (07:00)
[2017-11-21 08:01] LABS: HEMATOCRIT 31.9 % (42-52); HEMOGLOBIN 10.3 g/dL (14.0-18.0); MEAN CELL VOLUME 85.3 fL (80-100); MEAN CORPUSCULAR HEMOGLOBIN 27.5 pg (25-34); MEAN CORPUSCULAR HGB CONC 32.3 g/dl (32-36); MEAN PLATELET VOLUME 9.9 fL (7.4-10.4); PLATELET COUNT 121 K/uL (130-400); RED CELL DISTRIBUTION WIDTH CV 14.5 % (11.5-14.5); RED CELL DISTRIBUTION WIDTH SD 45.8 fL (36.4-46.3); WHITE BLOOD COUNT 8.32 K/uL (4.8-10.8)
[2017-11-21] MEDS: TOPIRAMATE 25 MG TAB PO SCH (08:21)
[2017-11-21] MEDS: ENALAPRIL MALEATE 10 MG TAB PO SCH (08:25)
[2017-11-21 08:29] LABS: CALCIUM 7.9 mg/dl (8.5-10.1); CREATININE 1.18 mg/dl (0.60-1.40)
[2017-11-21] MEDS ORDERED: ASPIRIN 325 MG ECTAB PO SCH (09:00)
[2017-11-21] MEDS ORDERED: TOCOPHERYL, DL-ALPHA 400 INTER.UNIT CAP PO SCH (09:00)
[2017-11-21] MEDS ORDERED: ASPIRIN 81 MG ECTAB PO SCH (09:00)
[2017-11-21] MEDS ORDERED: CEFTRIAXONE SOD INJ 500 MG in DEXTROSE 5% 50ML 50 ML IV SCH (09:00)
[2017-11-21] MEDS ORDERED: AMLODIPINE BESYLATE 5 MG TAB PO SCH (09:00)
[2017-11-21] MEDS ORDERED: ISOSORBIDE MONONITRATE 30 MG TABCR PO SCH (09:00)
[2017-11-21] MEDS ORDERED: EZETIMIBE 10MG TAB PO SCH (09:00)
[2017-11-21] MEDS ORDERED: ATORVASTATIN 40 MG TAB PO SCH (09:00)
[2017-11-21] MEDS ORDERED: MULTIVITAMIN TAB PO SCH (09:00)
[2017-11-21] MEDS ORDERED: PERFLUTREN LIPID MICROSPHERE (DEFINITY) IV ONE (11:16)
[2017-11-21] MEDS ORDERED: CEFD300C3 PO (14:00)
--- NOTE | 2017-11-21 14:04 | Discharge Instructions ---
Discharge Instructions Date of Service Nov 21, 2017. Admission Reason for Admission: Rob(Acute Kidney Injury); Dehydration; Discharge Discharge Diagnosis / Problem: Acute kidney injury, dehydration Discharge Goals Goal(s): Decrease discomfort, Improve function Activity Recommendations Activity Limitations: resume your previous activity . Instructions / Follow-Up Instructions / Follow-Up Medications: - CEFDINIR: only fill if you have a fever at home (100.4 F or 38.0 C), this will cover pneumonia In summary, you had dehydration causing acute kidney injury, both are resolved. Fever likely due to viral illness, flu testing was negative, Chest x-ray clear , no signs of UTI. FOLLOW UP - Jose Ramon Ken in one week, call for appointment Current Hospital Diet Patient's current hospital diet: Regular Diet Discharge Diet Recommended Diet: Regular Diet Pending Studies Studies pending at discharge: no Laboratory Results Hemoglobin A1c Test 09/09/17 08:13 Range/Units Estimated Average Glucose 146 mg/dl Hemoglobin A1c 6.7 H 4.5-5.6 % Medical Emergencies . Who to Call and When: Medical Emergencies: If at any time you feel your situation is an emergency, please call 911 immediately. . Non-Emergent Contact Non-Emergency issues call your: Primary Care Provider Call Non-Emergent contact if: you have any medication questions . . "Provider Documentation" section prepared by Deshawn Roque. . VTE Core Measure Inpt VTE Proph given/why not?: Treatment not indicated [place] Drug Monitoring Program Search Results: no issues identified
--- NOTE | 2017-11-21 14:42 | CARDIOLOGY CONSULTATION ---
DATE OF CONSULTATION: 11/21/2017 TIME: 13:27 p.m. PRIMARY EVENT ORGANIZER: Blaine Doherty MD CONSULTING PHYSICIAN: Raoul Le MD REASON FOR CONSULTATION: Elevated troponin. HISTORY OF PRESENT ILLNESS: Mr. Patel is a pleasant 87-year-old gentleman with a history significant for CAD status post CABG x4 in [facility] [place] in [place], AV block status post [employer]tronic dual-chamber pacemaker, dyslipidemia, renal insufficiency, diabetic peripheral neuropathy, type 2 diabetes, hypertension, and anemia. He presented to [facility] on 11/20/2017 with the complaint of not feeling himself. He apparently was having difficulty remembering things over the last couple of days. His reported upon presentation to the admitting physician that he would stare into space. She found him sitting in his bedroom at the side of his bed rather than getting dressed for the day. Apparently, they were driving home from somewhere and he did not know where they were. He currently feels well and states that he is back to his usual baseline. He does not recall any of these events. He has been coughing up yellow sputum. He also has denied angina, syncope, near syncope, palpitations, edema, shortness of breath or chest discomfort. He recalls having angina prior to his bypass in 1995 and has not had any recent angina. He is currently requesting to go home. He does admit that he is off balance when walking and uses a cane to help ambulate. He also had some lightheadedness yesterday in the morning, but once again feels well now. He has been noted to be febrile intermittently since being admitted. One of his main concern is his pacemaker. He believes that his pacemaker may be reaching end of life. REVIEW OF SYSTEMS: As above and also declines melena, hematochezia, hematuria, nausea, vomiting. Review of systems is otherwise negative/unremarkable. PAST MEDICAL HISTORY: 1. 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 Doherty. Implantation was performed on 02/16/2013 for complete heart block. 2. CAD status post CABG x4 in 1995 at [facility] [place]. 3. Hypertension. 4. Dyslipidemia. 5. Type 2 diabetes. 6. Anemia. 7. Peripheral neuropathy. 8. Polyarteritis. 9. Renal insufficiency. CURRENT MEDICATIONS: Include aspirin 325 mg daily, amlodipine 5 mg daily, Lipitor 40 mg daily, ceftriaxone 500 mg IV daily, enalapril 20 mg p.o. b.i.d., Zetia 10 mg daily, isosorbide mononitrate 30 mg daily, levothyroxine 50 mcg daily, normal saline 125 mL per hour. ALLERGIES: No known drug allergies. SOCIAL HISTORY: Denies tobacco, alcohol or drug abuse. He is and lives with his . Two children. He is retired from [employer], but still does some part-time work at the [employer]. FAMILY HISTORY: No CAD or stroke. Mother had gastric cancer. PHYSICAL EXAMINATION: VITAL SIGNS: Temperature 36.9 degrees, but T-max is 38.5, heart rate 66 beats per minute, respiration rate 16, blood pressure 118/67 mmHg, oxygen saturation is 93% on room air. Weight is 77.6 kg. GENERAL: No acute distress. He is alert and oriented. HEENT: Anicteric sclerae. NECK: No appreciable JVD. Normal carotid upstrokes bilaterally. There are bilateral carotid bruits versus radiation of the cardiac murmur. CARDIAC EXAM: PMI nondisplaced. There is no ventricular heave. Regular, normal S1, S2. There is a 2/6 early peaking systolic ejection murmur best heard at the right upper sternal border. No rubs or gallops. LUNGS: Clear to auscultation bilaterally, but decreased breath sounds. ABDOMEN: Soft, nontender, nondistended. Normoactive bowel sounds. EXTREMITIES: No cyanosis or edema. 2+ radial pulses bilaterally. 2+ dorsalis pedis pulses bilaterally. No palpable cords. PSYCHIATRIC: Affect appears appropriate. IMAGING STUDIES: ECG on 11/20/2017 personally reviewed. Atrial sensed ventricular paced rhythm with occasional AV dual-paced complexes. Telemetry personally reviewed. No other arrhythmia. LABORATORY DATA: Sodium 140, potassium 4, BUN 23, creatinine 1.18 down from 1.68 following hydration. His initial troponin was 0.19, which was also the peak troponin. WBC 8.32, hemoglobin 10.3, platelets 121. Urinalysis is not suggestive of infection. Influenza A and B are negative. Chest x-ray no acute process as per radiology. Chest x-ray image also personally reviewed. No obvious infiltrate. Dual-chamber pacemaker noted. ASSESSMENT AND PLAN: 1. Mental status change: Not likely cardiac in etiology. It may be related to his febrile process, as per primary service. Cannot rule out carotid artery disease. Carotid duplex ordered. 2. Systolic murmur: A nonurgent echocardiogram can be performed. It would suggest sclerotic aortic valve or mild aortic stenosis. 3. Elevated troponins: He did not present with acute coronary syndrome and has had angina in the past prior to his bypass. Given his coronary artery disease history however and elevated troponins, an echocardiogram will be ordered. 4. High-grade arteriovenous block status post dual-chamber pacemaker: He is concerned that his pacemaker is not working correctly or nearing end of life. For this reason, an interrogation will be ordered. He follows with electrophysiology. 5. Coronary artery disease status post coronary artery bypass graft x4: Continue aspirin 81 mg daily, sufficient from a cardiac perspective. He has not had any angina and denies any heart failure symptoms. In fact, he had been treated for hypovolemia with IV fluids. Continue high-intensity statin therapy. 6. Hypertension: Blood pressure adequately controlled. No changes recommended at this time. 7. Disposition: Please call for any further questions or concerns. Cardiology will sign off at this time pending echo findings or pacemaker interrogation findings. The patient's care has been discussed with the primary service, Dr. Roque and Kacey Brandon. Greater than 40 minutes time spent counseling patient, coordinating care, and discussing with primary service as well as reviewing studies.
--- NOTE | 2017-11-21 15:24 | Discharge Summary ---
Discharge Summary Date of Service Nov 21, 2017. Discharge Summary Admission Date: Nov 20, 2017 at 17:19 Discharge Date: Nov 21, 2017 Discharge Disposition: Home Principal Diagnosis: viral URI, elevated troponin Problems/Secondary Diagnoses: Dehydration/AMS, JOVANNA, Upper respiratory infection, HTN, DM2, Hypothyroidsim Immunizations: Have You Had Influenza Vaccine: Yes History of Tetanus Vaccine?: No History of Pneumococcal: Yes History of Hepatitis B Vaccine: Unknown Procedures: Echo - pending Carotid US - pending Consultations: CHEST ONE VIEW PORTABLE HISTORY: 87 years-old Male fever acute fever COMPARISON: Chest radiographs 02/17/2013 TECHNIQUE: Portable AP view of the chest FINDINGS: Cardiac silhouette is within normal limits. Prior median sternotomy. Left pectoral pacer is unchanged. No pneumothorax, pleural effusion, focal airspace consolidation or overt pulmonary edema. Degenerative changes are seen within the shoulders and spine. IMPRESSION: No acute process. Medication Reconciliation New Medications: Cefdinir (Cefdinir) 300 Mg Cap 300 MG PO Q12 for 5 Days, #10 CAP 0 Refills Continued Medications: Amlodipine Besylate (Norvasc) 5 Mg Tab 5 MG PO DAILY, TAB Aspirin (Aspirin) 325 Mg Tab 325 MG PO DAILY Atorvastatin (Lipitor) 40 Mg Tab 40 MG PO DAILY, TAB Enalapril Maleate (Enalapril Maleate) 20 Mg Tab 20 MG PO BID Ezetimibe (Zetia) 10 Mg Tab 10 MG PO DAILY, TAB Hydroxychloroquine Sulfate (Plaquenil) 200 Mg Tab 200 MG PO DAILY, TAB WITH FOOD Isosorbide Mononitrate Ext Rel (Imdur Ext Rel) 30 Mg Ertab 30 MG PO DAILY, TAB Levothyroxine Sodium (Levothyroxine Sodium) 50 Mcg Tab 50 MCG PO DAILY for 90 Days, #90 TAB 3 Refills Metformin Hcl (Glucophage) 500 Mg Tab 500 MG PO BID, TAB Multiple Vitamin (Multivitamin) 1 Tab Tab 1 TAB PO DAILY, TAB Topiramate (Topamax) 25 Mg Tab 25 MG PO BID, TAB Vitamin E (Vitamin E) 400 Unit Tab 1 TAB PO DAILY Vitamins C & E (Vitamin C) 1 Cap Cap 1 CAP PO DAILY Discharge Exam ROS Constitutional: no chills, aches, sweats or fever Respiratory: cough with small amount of yellow sputum, no sob, sputum, or wheezing Cardiac: no chest pain, palpitations, edema, orthopnea or lightheadedness GI: no abdominal pain, nausea, vomiting, diarrhea or constipation : no dysuria or hesitancy Extremities: no joint pain or weakness Skin: no rash All other systems reviewed and negative General: no distress Eyes: normal inspection, PERLL Respiratory: chest non tender, course breath sounds diffusely throughout lung solis, no respiratory distress, no accessory muscle use Cardiac: regular rate and rhythm, no rub or gallop, no murmur, no edema, no jvd GI/: active bowel sounds, no abd pain or tenderness, soft, non distended Extremities: normal range of motion, normal strength, non tender Neuro/Psych: alert and oriented x 3, normal mood and affect Skin: normal color, dry Hospital Course 87 yo male comes into the hospital with a one week history of a productive cough. This was later accompanied by subjective fever and chills, and poor appetite. Patient reports that the past 2 days patient has become more lethargic , weak and forgetful. Patient's states that he would have episodes where he would stare off into space or not get dressed in the morning.Patient also had been getting lost when he is with his , stating that he did not know where he was when they were driving home. Elevated troponin - troponin peaked at 0.19 and trended down - echo pending - patient did not have chest pain and troponins trending down - unlikely that this was an acute coronary event Dehydration/AMS - Mental status appears appropriate today. Change may have been product of fever /dehydration - IVF provided - Carotid US pending JOVANNA - Creat peaked at 1.6 and trended down to 1.18 after IVF Upper respiratory infection - Patient received vanco and cefepime in ED, further abx held as illness appears viral - no apparent UTI, no acute process on CXR - discharged with script for cefdinir to fill only if he has a fever at home. HTN continue home meds DM2 placed on sliding scale Hypothyroidsim - cont home meds. Total Time Spent: Greater than 30 minutes This includes examination of the patient, discharge planning, medication reconciliation, and communication with other providers. Discharge Instructions Please refer to the electronic Patient Visit Report (Discharge Instructions) for additional information. Follow-Up Follow up with Jose Ramon Ken within about a week Additional Copies To Jose Ramon Ken III, CRNP
--- NOTE | 2017-11-21 15:36 | ECHOCARDIOGRAM REPORT ---
*NOTICE TO RECEIVING [employer] This information is strictly Confidential and protected under [place] law. [place] law prohibits you from making any further disclosure of this information unless further disclosure is expressly permitted by the written consent of the person to whom it pertains or is authorized by law. A general authorization for the release of medical or other information is not sufficient for this purpose. Hospital accepts no responsibility if the information is made available to any other person, INCLUDING THE PATIENT. Interpretation Summary * Name: VLADIMIR CROWLEY Study Date: 11/21/2017 10:51 AM BP: 114/63 mmHg * Patient Location: C.2T\S\S233\S\1 HR: 77 * : 1930 (M/d/yyyy) Gender: Male Height: 62 in * Age: 87 yrs Ethnicity: [place] Weight: 171 lb * Ordering Physician: Abdirashid Fournier * Referring Physician: Self, Referred * Performed By: Flakita Hernandez RDCS * * Reason For Study: ELEVATED TROP, CAD * BSA: 1.8 m2 * -- Conclusions -- * 1. Normal left ventricular size and systolic function. EF 60-65%. No regional wall motion abnormalities. Septal motion consistent with pacemaker. No significant left ventricular hypertrophy. Type 1 diastolic dysfunction. * 2. Mild valvular aortic stenosis. * 3. There is moderate mitral annular calcification. * 4. Normal estimated right ventricular systolic pressure; 31mmHg. * 5. Technically difficult study, enhanced with IV Definity. * 6. No prior study available for comparison. Procedure Details * A contrast injection of Definity was performed to improve assessment of LV function. * Contrast was injected into an intravenous site in the left arm. * One vial of Definity ultrasound contrast was diluted in normal saline to a total volume of 10 ml. A total of '1' ml of solution was administered during imaging. * Lot # [id number] of Definity utilized for procedure. * Expiration date NOV 18. * The attending nurse who injected the contrast agent was СВЕТЛАНА TEJEDA RN. Left Ventricle * Normal left ventricular size and systolic function. EF 60-65%. No regional wall motion abnormalities. Septal motion consistent with pacemaker. No significant left ventricular hypertrophy. Type 1 diastolic dysfunction. Right Ventricle * The right ventricle is normal in size and function. * The right ventricular systolic function is normal as assessed by tricuspid annular plane systolic excursion (TAPSE) (normal >1.5 cm). Atria * The left atrium is borderline dilated. * Right atrial size is normal. * There is no evidence of atrial septal defect, but resolution does not allow assessment for a patent foramen ovale. Mitral Valve * There is moderate mitral annular calcification. * There is no mitral valve stenosis. * There is trace mitral regurgitation. Tricuspid Valve * The tricuspid valve is not well visualized, but is grossly normal. * There is no tricuspid stenosis. * There is trace tricuspid regurgitation. Aortic Valve * Mild valvular aortic stenosis. * Trace aortic regurgitation. Pulmonic Valve * The pulmonary valve is inadequately visualized, but the Doppler data is adequate for interpretation. * There is no pulmonic valvular stenosis. * There is no significant pulmonary regurgitation. Great Vessels * The aortic root is normal size. Pericardium/Pleural * There is no pericardial effusion. Great Vessels * Normal pulmonary venous flow pattern. * Normal inferior vena cava size and collapsability with sniff indicates a normal right atrial pressure of 3 mmHg MMode 2D Measurements and Calculations IVSd 1.1 cm IVSs 1.7 cm LVIDd 5.1 cm LVIDs 2.9 cm LVPWd 1.1 cm LVPWs 1.8 cm IVS/LVPW 0.98 FS 43.5 % EDV(Teich) 122.4 ml ESV(Teich) 31.4 ml EF(Teich) 74.4 % EDV(cubed) 130.7 ml ESV(cubed) 23.6 ml EF(cubed) 81.9 % % IVS thick 59.2 % % LVPW thick 68.3 % LV mass(C)d 205.4 grams LV mass(C)dI 114.9 grams/m\S\2 LV mass(C)s 197.7 grams LV mass(C)sI 110.5 grams/m\S\2 SV(Teich) 91.0 ml SI(Teich) 50.9 ml/m\S\2 SV(cubed) 107.1 ml SI(cubed) 59.9 ml/m\S\2 Ao root diam 3.4 cm Ao root area 9.0 cm\S\2 LA dimension 4.2 cm LA/Ao 1.2 LVOT diam 2.1 cm LVOT area 3.6 cm\S\2 LVAd ap4 28.6 cm\S\2 LVLd ap4 7.4 cm EDV(MOD-sp4) 92.0 ml EDV(sp4-el) 93.3 ml LVAs ap4 16.9 cm\S\2 LVLs ap4 6.9 cm ESV(MOD-sp4) 32.8 ml ESV(sp4-el) 35.5 ml EF(MOD-sp4) 64.3 % EF(sp4-el) 62.0 % LVAd ap2 28.5 cm\S\2 LVLd ap2 7.4 cm EDV(MOD-sp2) 93.2 ml EDV(sp2-el) 93.7 ml LVAs ap2 17.0 cm\S\2 LVLs ap2 6.2 cm ESV(MOD-sp2) 40.1 ml ESV(sp2-el) 40.0 ml EF(MOD-sp2) 57.0 % EF(sp2-el) 57.4 % LVLd %diff -0.87 % EDV(MOD-bp) 93.0 ml LVLs %diff -11.64 % ESV(MOD-bp) 38.0 ml EF(MOD-bp) 59.2 % SV(MOD-sp4) 59.2 ml SI(MOD-sp4) 33.1 ml/m\S\2 SV(MOD-sp2) 53.1 ml SI(MOD-sp2) 29.7 ml/m\S\2 SV(MOD-bp) 55.0 ml SI(MOD-bp) 30.8 ml/m\S\2 SV(sp4-el) 57.8 ml SI(sp4-el) 32.3 ml/m\S\2 SV(sp2-el) 53.8 ml SI(sp2-el) 30.1 ml/m\S\2 Doppler Measurements and Calculations MV E max german 92.2 cm/sec MV A max german 111.1 cm/sec MV E/A 0.83 MV dec time 0.24 sec Ao V2 max 231.1 cm/sec Ao max PG 21.4 mmHg Ao max PG (full) 15.4 mmHg Ao V2 mean 154.0 cm/sec Ao mean PG 11.2 mmHg Ao mean PG (full) 7.4 mmHg Ao V2 VTI 46.3 cm RAY(I,A) 2.2 cm\S\2 RAY(I,D) 2.2 cm\S\2 RAY(V,A) 1.9 cm\S\2 RAY(V,D) 1.9 cm\S\2 AI max german 315.8 cm/sec AI max PG 39.9 mmHg AI dec slope 144.9 cm/sec\S\2 AI P1/2t 638.1 msec LV V1 max PG 6.0 mmHg LV V1 mean PG 3.8 mmHg LV V1 max 121.9 cm/sec LV V1 mean 91.8 cm/sec LV V1 VTI 28.5 cm SV(Ao) 417.8 ml SI(Ao) 233.6 ml/m\S\2 SV(LVOT) 102.8 ml SI(LVOT) 57.5 ml/m\S\2 TR max german 263.9 cm/sec RVSP(TR) 31.1 mmHg RAP systole 3.0 mmHg
--- NOTE | 2017-11-21 16:00 | DIAGNOSTIC IMAGING REPORT ---
CAROTID DOPPLER NECK ART HISTORY: Mental status change confusion and carotid bruit COMPARISON: None. TECHNIQUE: Real-time, grayscale, and color Doppler sonography of the carotid arteries was performed. Imaging reviewed in the transverse and longitudinal planes. All measurements were calculated based on NASCET criteria. FINDINGS: Antegrade flow is seen in the bilateral vertebral arteries. The brachial pressures are hemodynamically similar. Moderate plaque formation bilaterally The peak systolic velocity within the right ICA is 81. The right systolic ratio is 0.96. The peak systolic velocity within the left ICA is 102. The left systolic ratio is 1.3. IMPRESSION: No hemodynamically significant stenosis seen within the carotid arteries. Moderate bilateral plaque formation The above report was generated using voice recognition software. It may contain grammatical, syntax or spelling errors. Electronically signed by: Jerad Spain M.D. 11/21/2017 3:58 PM Dictated Date/Time: 11/21/2017 3:58 PM
== END 2017-11-21 15:36 | disposition home or self-care (01) ==
LOC: C.EDB 12:21 → C.2T 17:19 → ENRESERV 18:05
PROVIDERS: ADMIT Internal Medicine Sports Medicine; ATTEND Internal Medicine
DX: N17.9 Acute kidney failure, unspecified (principal); E86.0 Dehydration; J06.9 Acute upper respiratory infection, unspecified; R79.89 Other specified abnormal findings of blood chemistry; R41.82 Altered mental status, unspecified; I10 Essential (primary) hypertension; E11.9 Type 2 diabetes mellitus without complications; G62.9 Polyneuropathy, unspecified; E03.9 Hypothyroidism, unspecified; E78.5 Hyperlipidemia, unspecified; I25.10 Atherosclerotic heart disease of native coronary artery without angina pectoris; Z95.1 Presence of aortocoronary bypass graft; Z79.82 Long term (current) use of aspirin; Z95.0 Presence of cardiac pacemaker

== ENCOUNTER → 2017-11-28 | Outpatient (CLI) | payer BC ==
[~2017-11-28] MED LIST changes: +CEFD300C3 PO; +LEVO50TA6 PO; -NITRSPR6 SL
[2017-11-28 15:47] LABS: ALBUMIN 3.4 gm/dl (3.4-5.0); BLOOD UREA NITROGEN 23 mg/dl (7-18); CALCIUM 9.4 mg/dl (8.5-10.1); CARBON DIOXIDE 24 mmol/L (21-32); CREATININE 1.22 mg/dl (0.60-1.40); GLUCOSE 133 mg/dl (70-99); PHOSPHORUS 3.2 mg/dl (2.5-4.9); POTASSIUM 4.5 mmol/L (3.5-5.1); SODIUM 141 mmol/L (136-145)
== END | disposition home or self-care (01) ==
LOC: C.LAB1850 13:02
PROVIDERS: ATTEND Nurse Practitioner Family
DX: N28.9 Disorder of kidney and ureter, unspecified (principal)

== ENCOUNTER → 2018-05-18 | Outpatient (CLI) | payer BC ==
[~2018-05-18] MED LIST changes: +ASPECOTC PO; -ASPI325T45 PO
[2018-05-18 13:09] LABS: BASO % 0.3 %; BASO ABS # 0.02 K/uL (0-0.2); EOS ABS # 0.18 K/uL (0-0.5); HEMOGLOBIN 12.3 g/dL (14.0-18.0); IG# 0.01 K/uL (0.00-0.02); LYMPH % 32.4 %; LYMPH ABS # 1.92 K/uL (1.2-3.4); MEAN CELL VOLUME 86.4 fL (80-100); MEAN CORPUSCULAR HGB CONC 32.4 g/dl (32-36); MEAN PLATELET VOLUME 10.1 fL (7.4-10.4); MONO % 10.5 %; MONO ABS # 0.62 K/uL (0.11-0.59); NEUT % 53.6 %; NEUT ABS # 3.17 K/uL (1.4-6.5); PLATELET COUNT 226 K/uL (130-400); RED CELL DISTRIBUTION WIDTH CV 14.7 % (11.5-14.5); WHITE BLOOD COUNT 5.92 K/uL (4.8-10.8)
[2018-05-18 13:51] LABS: ALBUMIN 3.8 gm/dl (3.4-5.0); ALKALINE PHOSPHATASE 78 U/L (45-117); ALT/SGPT 30 U/L (12-78); AST/SGOT 19 U/L (15-37); BLOOD UREA NITROGEN 21 mg/dl (7-18); CALCIUM 8.7 mg/dl (8.5-10.1); CARBON DIOXIDE 24 mmol/L (21-32); CREATININE 1.26 mg/dl (0.60-1.40); GLUCOSE 122 mg/dl (70-99); POTASSIUM 4.6 mmol/L (3.5-5.1); SODIUM 142 mmol/L (136-145); TOTAL PROTEIN 7.1 gm/dl (6.4-8.2)
== END | disposition home or self-care (01) ==
LOC: C.LAB1850 12:23
PROVIDERS: ATTEND Nurse Practitioner Family
DX: Z79.899 Other long term (current) drug therapy (principal)